=== PATIENT | male | born 1970 | race Two or more races ===

== ENCOUNTER 2025-02-24 20:25 | Emergency (ER) | payer OTHER ==
[~2025-02-24] VITALS: Ht 170.2 cm; Wt 74.8 kg
[2025-02-24] MEDS ORDERED: TAMSULOSIN HCL 0.4 MG CAP PO ONE (22:15)
[2025-02-24] MEDS ORDERED: CEFTRIAXONE SODIUM 1,000 MG VIAL IM ONE (22:15)
[2025-02-24] MEDS ORDERED: KETOROLAC TROMETHAMINE 60 MG VIAL IM ONE (22:15)
[2025-02-24 22:53] LABS: BASO % 0.2 % (0.1-1.2); EOS # 0.00 (0.04-0.54); EOS % 0.0 % (0.7-7.0); LYMPH # 1.68 (1.18-3.74); LYMPH % 12.7 % (19.3-53.1); MEAN PLATELET VOLUME 9.70 fl (9.4-12.4); MONO # 0.95 (0.24-0.82); MONO % 7.2 % (4.7-12.5); NEUT # 10.51 (1.56-6.13); NEUT % 79.5 % (34.0-71.1); RED CELL DISTRIBUTION WIDTH 12.1 % (11.6-14.4)
[2025-02-24 23:15] LABS: INR 1.03
[2025-02-24 23:19] LABS: URINE APPEARANCE Clear; URINE BILIRRUBIN Negative (NEGATIVE); URINE BLOOD Moderate; URINE COLOR Yellow; URINE GLUCOSE Negative (NEGATIVE); URINE KETONE Negative (NEGATIVE); URINE LEUKOCYTE Negative; URINE NITRATE Negative; URINE PROTEIN Negative (NEGATIVE); URINE UROBILINOGEN 0.2 E.U./dl
[2025-02-24 23:20] LABS: ALT/SGPT 22.0 U/L (12-78); AST/SGOT 18.0 U/L (15-37); BILIRUBIN TOTAL 0.98 mg/dL (0.3-1.2); BUN CREA RATIO 13.0 (7.0-25.0); CREATININE SERUM 1.28 mg/dL (0.70-1.30); GFR 58.79; GLOBULINA 3.4 G/DL (2.4-3.5); GLUCOSE FASTING 115.0 mg/dL (65-100); OSMOLALITY SERUM 274.0 MOSM/KG (275-295)
[2025-02-24 23:23] LABS: URINE RBC 3.5 uL (0.0-20.8); URINE WBC 4.4 uL (0.0-23.2)
[2025-02-24 23:29] LABS: URINE BACTERIA 2.3 uL (0.0-1933); URINE CAST 0.00 uL (0.0-1.40); URINE EPITHELIAL CELLS 0.0 uL (0.0-38.8)
[2025-02-24] MEDS ORDERED: BACTRIM DS TAB1 EACH PO (23:55)
[2025-02-24] MEDS ORDERED: NORFLEX100MG PO (23:55)
[2025-02-24] MEDS ORDERED: TAMS0.4C PO (23:55)
[2025-02-24] MEDS ORDERED: PEPCID AC20 MG PO (23:55)
== END 2025-02-25 00:01 | disposition home or self-care (01) ==
LOC: ER 20:25
PROVIDERS: General Practice
DX: R10.9 Unspecified abdominal pain (principal)